=== PATIENT | male | born 1970 | race Two or more races ===

== ENCOUNTER 2017-10-19 08:45 | Outpatient (CLI) | payer OTHER | END 2017-10-19 08:56 | disposition home or self-care (01) | LOC: SONOGRAMA 08:45 | DX: E04.2 Nontoxic multinodular goiter (principal) ==

== ENCOUNTER 2019-05-12 07:22 | Outpatient (CLI) | payer OTHER | END 2019-05-12 07:24 | disposition home or self-care (01) | LOC: SONOGRAMA 07:22 | DX: E04.1 Nontoxic single thyroid nodule (principal) ==